=== PATIENT | female | born 1945 | race Caucasian/White ===

== ENCOUNTER → 2017-06-26 | Day surgery (SDC) | payer MEDICARE ==
--- NOTE | 2017-06-18 10:58 | TH ---
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 ATTENDING PHYSICIAN Omayra Lilly. HISTORY OF PRESENT ILLNESS The patient is a 71-year-old who was noted to have a density in the right breast on bilateral diagnostic mammogram January 15, 2017. Right breast ultrasound confirmed a 1.4 x 1.1 cm BI-RADS 4 hypoechoic nodule and she subsequently underwent ultrasound-guided core biopsy in January. This was for a mass at 10 o'clock, 10 cm from the nipple. Final pathology demonstrated focal atypical ductal hyperplasia. She was seen in March and re-excision of the area was recommended but she has been unable to proceed until this time. She has had bilateral benign open biopsies of the breast in the and . PAST MEDICAL HISTORY 1. Hypertension. 2. Non-insulin dependent type 2 diabetes. 3. Osteoarthritis. 4. Spinal stenosis. PAST SURGICAL HISTORY 1. Total abdominal hysterectomy and bilateral salpingo-oophorectomy in the . 2. Bilateral open breast biopsies as above. 3. Laparoscopic cholecystectomy in the . 4. Cystopexy in 2008. 5. Foot surgery in 2008. 6. Cataract surgery in April. MEDICATIONS Current medications include: 1. Aspirin 81 mg daily. 2. Alprazolam 0.25 mg q.i.d. p.r.n. anxiety. 3. Amlodipine 5 mg b.i.d. 4. Carvedilol 6.25 mg b.i.d. 5. Estradiol 1 mg daily. 6. Isosorbide extended release 60 mg daily. 7. Lovastatin 40 mg daily. 8. Metformin 500 mg daily. 9. Nicotrol inhaler p.r.n. 10.Sublingual nitroglycerin 0.4 mg p.r.n. 11.Ranitidine 300 mg daily. 12.Vitamin-D 50,000 units twice a week. 13.B12 shots. ALLERGIES 1. CYMBALTA. 2. SULFA. 3. LISINOPRIL. 4. LOSARTAN. FAMILY HISTORY Noncontributory. REPRODUCTIVE HISTORY G4, P4. Menarche age 12. First child age 16. Surgical menopause age 41. She took Premarin for many years but was switched to estradiol 2 years ago. SOCIAL HISTORY She has a long history of nicotine abuse and currently uses the Nicotrol inhaler once or twice daily. REVIEW OF SYSTEMS A 12-point review of systems was significant for cataracts and neck and joint pain and stiffness. She also has a long history of anxiety. PHYSICAL EXAMINATION VITAL SIGNS: She is 5.3, weighs 186 pounds with a BMI of 33. Blood pressure 137/76, temperature 97, heart rate 62, respirations 17. HEENT: Unremarkable. NECK: Supple with no adenopathy or thyromegaly. CHEST: Clear throughout. CARDIAC: Normal S1 and S2 with no murmurs, rubs or gallops. BREASTS: Exam reveals fibrocystic changes with a 1 cm superolateral quadrant mass in the right breast. The right breast mass was at 10 o'clock, 7 cm from the nipple and there was also a 9 o'clock scar in the right breast with volume loss and an 11 o'clock periareolar left breast scar. ABDOMEN: Exam reveals well-healed port scars and a Pfannenstiel scar with no hernias, masses or tenderness. The remainder of her exam was unremarkable. IMPRESSION/PLAN Ms. Yan has atypical ductal hyperplasia and will require needle-localized excision of the area. We have also recommended tapering and stopping the estradiol. Omayra Lilly MD [facility]/BT /10:29 AM /10:38 AM
[~2017-06-26] MED LIST: ALPR0.25 PO; BUPIVACAINE HCL PF 0.5% 10 ML VIAL ONE; CARV6.252 PO; CHOL50006 PO; ESTR1TAB12 PO; ISOS20TA38 PO; KETOROLAC TROMETHAMINE 30 MG/ML (IVP) VIAL ONE; LACTATED RINGER'S 1000 ML INJ 1,000 ML ONE; LOVA10TA PO; METF500 PO; MIDAZOLAM HCL 2 MG/2 ML VIAL ONE; ONDANSETRON HCL 4 MG/2 ML VIAL IV PUSH ONE; PROPOFOL 100 MG/10 ML INJ IV ONE; PROT40TA PO; RANI150 PO; ST JTAB PO; ZOFR4TAB3 SL; ceFAZolin 2 GM PREMIX 50 ML ONE
--- NOTE | 2017-06-26 12:30 | TN ---
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 PROCEDURE PERFORMED Right breast needle-localized lumpectomy. SURGEON Omayra Lilly MD ANESTHESIA General via LMA device. INDICATION The patient is a 72-year-old female who had a palpable right breast mass with an ultrasound-guided core biopsy which demonstrated atypical ductal hyperplasia. She now presents for needle-localized re-excision of the area. FINDINGS AT THE TIME OF SURGERY Specimen mammogram did indicate an intact wire and the biopsy clip was within the specimen. PROCEDURE PERFORMED After informed consent was obtained and site verification was performed, the patient was brought to the radiology suite where she underwent needle localization of her prior biopsy site. She was then brought to the major operating room where she underwent general anesthesia via LMA device. She was given a single dose of IV Ancef and sequential compression hose were placed. The right breast was prepped and draped in sterile fashion. A crescent incision was anesthetized near the wire entry point and the lesion was identified at 10 o'clock 7 cm from the nipple. Further 0.5% Marcaine plain was then used to infiltrate around the wire. Sharp dissection was performed until the wire entry point through the skin was identified and secured with a hemostat. The wire was cut off at the skin with pin cutters and a 2-0 Silk transfixion suture was placed at the wire entry point into the breast tissue. Both sharp and electrocautery dissection were then performed circumferentially around the wire beyond the tip and the specimen was oriented with two sutures laterally, one long suture anteriorly, and one short suture superiorly. Inspection of the specimen did demonstrate that the posterior margin appeared close and this was reexcised using electrocautery with a stitch on the new margin. This was sent as a permanent specimen and the lumpectomy specimen was sent to x-ray with the findings as noted. It was then sent for permanent pathologic evaluation. Hemostasis was easily obtained with electrocautery and the wound was closed using interrupted 3-0 Vicryl subcutaneous sutures and a 4-0 Monocryl subcuticular suture. Steri-Strips and sterile dressing were applied. The patient tolerated the procedure well with an estimated blood loss of 50 ccs and she was extubated in the operating room and brought to the recovery room in good condition. All sponge and needle counts were correct at the conclusion of the case. MD JASBIR Lovett/MIKE /12:10 PM /12:17 PM
== END | disposition home or self-care (01) ==
LOC: ESDC 08:34
PROVIDERS: ATTEND Surgery
DX: C50.911 Malignant neoplasm of unspecified site of right female breast (principal)
CPT/HCPCS: 00400; 19125; 88305; J0690; J1885; J2250; J2405; J3010; J7120; 88307; 88361

== ENCOUNTER 2017-08-31 19:55 | Emergency (ER) | payer MEDICARE ==
[~2017-08-31] VITALS: Ht 160 cm; Wt 83.2 kg
[~2017-08-31 19:55] MED LIST changes: -BUPIVACAINE HCL PF 0.5% 10 ML VIAL ONE; -KETOROLAC TROMETHAMINE 30 MG/ML (IVP) VIAL ONE; -LACTATED RINGER'S 1000 ML INJ 1,000 ML ONE; -MIDAZOLAM HCL 2 MG/2 ML VIAL ONE; -ONDANSETRON HCL 4 MG/2 ML VIAL IV PUSH ONE; -PROPOFOL 100 MG/10 ML INJ IV ONE; -ceFAZolin 2 GM PREMIX 50 ML ONE
[2017-08-31 19:57] VITALS: BP 195/84; PULSE 70; RESP 18; TEMP 98; O2SAT 98
[2017-08-31] MEDS ORDERED: ESTR1TAB PO (20:15)
[2017-08-31] MEDS ORDERED: ISOS20TA PO (20:15)
[2017-08-31] MEDS ORDERED: CARV6.252 PO (20:15)
[2017-08-31] MEDS ORDERED: NICO10SP EACH NARE (20:15)
[2017-08-31] MEDS ORDERED: VITA200013 PO (20:15)
[2017-08-31] MEDS ORDERED: NITR0.4S SL (20:15)
[2017-08-31] MEDS ORDERED: ALIG4CAP PO (20:15)
[2017-08-31] MEDS ORDERED: RANI300T PO (20:15)
[2017-08-31] MEDS ORDERED: METF500T PO (20:15)
[2017-08-31] MEDS ORDERED: AMLO5TAB2 PO (20:15)
[2017-08-31] MEDS ORDERED: ALPR.25 PO (20:15)
[2017-08-31] MEDS ORDERED: ASPI-516 CHEW (20:15)
[2017-08-31] MEDS ORDERED: CYAN1TAB24 (20:15)
[2017-08-31] MEDS ORDERED: LOVA40TA PO (20:15)
[2017-08-31] MEDS ORDERED: CLIN150C14 PO (20:26)
--- NOTE | 2017-08-31 20:26 | PD ---
HPI Chief Complaint: Pain: Acute or Chronic Time Seen by Provider: 20:07 Travel History International Travel<30 days: No Contact w/Intl Traveler<30days: No Traveled to known affect area: No History of Present Illness HPI 72-year-old female complains of pain swelling right breast. Patient has history of atypical ductal hyperplasia right breast cancer. Patient status post right breast lumpectomy with intraoperative radiation therapy and right axillary sentinel lymph node biopsy. The surgery was done on August 15, [address] Ordoñez. Patient was seen in the office 2 days ago and had stitches removal. Patient states that she has increasing pain and swelling of the right breast since then. Patient denies any fever chills. PFSH Past Medical History Arthritis: Yes Anxiety: Yes Cancer: No Cardiac Catheterization: Yes Cardiovascular Problems: Yes (ARRYTHMIAS, BLOCKED CORONARY ARTERY( IN OP.)) High Cholesterol: Yes Diabetes: Yes Patient Takes Glucophage: Yes (METFORMIN ) Diminished Hearing: No Diverticulitis: Yes GERD: Yes Glaucoma: No Hepatitis: No Hiatal Hernia: No Hypertension: Yes Medical other: Yes (ARTHRITIS/SPINAL STENOSIS) Respiratory: No Thyroid Disease: No Influenza Vaccination: No Menopausal: Yes Past Surgical History Abdominal Surgery: Yes (CHOLECYSTECTOMY) Cardiac Surgery: Yes (LEFT CAROTID ENDARTECTOMY (FOR PLAQUE IN VESSELS OF LEFT EYE)) Cholecystectomy: Yes Endocrine Surgery: No Genitourinary Surgery: No Gynecologic Surgery: Yes (HYSTERECTOMY) Hysterectomy: Yes Pacemaker: No Thoracic Surgery: No Other Surgery: Yes (RIGHT BREAST) Social History Alcohol Use: No Tobacco Use: No Substance Use: No Allergies-Medications (Allergen,Severity, Reaction): Coded Allergies: Sulfa (Sulfonamide Antibiotics) (Unverified Allergy, Severe, SWELLING, HIVES, COULDN'T BREATHE, 08/31/17) duloxetine (Unverified Allergy, Severe, Rash, 08/31/17) codeine (Unverified Adverse Reaction, Severe, NAUSEA/VOMITING, 08/31/17) Uncoded Allergies: EXCEDRIN (Allergy, Severe, 12/17/14) PT STATES SHE IS NOT SURE SHE IS ALLERGOC TO THIS MED Reported Meds & Prescriptions Reported Meds & Active Scripts Active Reported B12 (Cyanocobalamin) 1,000 Mcg Tab 1 Nitrostat SL (Nitroglycerin) 0.4 Mg Subl 0.4 Mg SL DIRECTED PRN 1 tablet under the tongue as needed for chest pain. Repeat every 5 minutes for a total of 3 DOSES or call 911 if NO relief. Nicotrol Nasal [place] (Nicotine) 10 Mg/Ml Naspr 1 [place] EACH NARE DIRECTED Xanax (Alprazolam) 0.25 Mg Tab 0.25 Mg PO Q4H PRN Align (Lactobacillus Rhamnosus (GG)) 4 Mg (1 Billion Cell) Cap 4 Mg PO DAILY Aspirin 81 Mg Chew 81 Mg CHEW DAILY Ranitidine (Ranitidine HCl) 300 Mg Tab 300 Mg PO DAILY Vitamin D (Cholecalciferol) 2,000 Unit Cap 50,000 Mg PO SATURDAY + SATURDAY Estradiol 1 Mg Tab 1 Mg PO DAILY Amlodipine (Amlodipine Besylate) 5 Mg Tab 5 Mg PO BID Carvedilol 6.25 Mg Tab 6.25 Mg PO BID Isosorbide Mononitrate 20 Mg Tab 60 Mg PO BID Take 2 doses 7 hours apart. Lovastatin 40 Mg Tab 40 Mg PO HS Metformin (Metformin HCl) 500 Mg Tab 500 Mg PO HS With a meal Review of Systems General / Constitutional: No: Fever Eyes: No: Visual changes HENT: No: Headaches Cardiovascular: No: Chest Pain or Discomfort Respiratory: No: Shortness of Breath Gastrointestinal: No: Abdominal Pain Genitourinary: No: Dysuria Musculoskeletal: No: Pain Skin: No Rash Neurologic: No: Weakness Psychiatric: No: Depression Endocrine: No: Polydipsia Hematologic/Lymphatic: No: Easy Bruising Physical Exam Narrative GENERAL: Well-nourished, well-developed patient. SKIN: Focused skin assessment warm/dry. HEAD: Normocephalic. EYES: No scleral icterus. No injection or drainage. NECK: Supple, trachea midline. No JVD or lymphadenopathy. CARDIOVASCULAR: Regular rate and rhythm without murmurs, gallops, or rubs. RESPIRATORY: Breath sounds equal bilaterally. No accessory muscle use. GASTROINTESTINAL: Abdomen soft, non-tender, nondistended. MUSCULOSKELETAL: No cyanosis, or edema. BACK: Nontender without obvious deformity. No CVA tenderness. Patient has an area of redness swelling tenderness of the right breast surrounding the incisional site on the right upper outer quadrant of the right breast. No induration noted. No discharge. Data Data Last Documented VS Vital Signs Date Time Temp Pulse Resp B/P (MAP) Pulse Ox O2 Delivery O2 Flow Rate FiO2 12/30/17 19:57 98.0 70 18 195/84 (121) 98 Room Air MDM Medical Decision Making Medical Screen Exam Complete: Yes Emergency Medical Condition: Yes Differential Diagnosis Differential diagnosis including cellulitis, abscess. Narrative Course 72-year-old female with increasing redness swelling tenderness right breast status post right breast lumpectomy recently. I spoke with Dr. Ordoñez, her surgeon. Advised antibiotic. Patient is given clindamycin 600 mg IM now. Prescription for clindamycin and follow up with her surgeon as directed. Diagnosis Primary Impression: Mastitis Patient Instructions: General Instructions Additional Instructions: Take clindamycin as directed. Follow-up with surgeon as directed. Return if increasing redness swelling, fever. Med/Other Pt SpecificInfo: Prescription(s) given Scripts Clindamycin (Clindamycin) 150 Mg Cap 300 MG PO QID for Infection, #80 CAP 0 Refills Prov: Wilner Armstrong MD 08/31/17 Disposition: 01 DISCHARGE HOME Condition: Stable Wilner Armstrong MD Aug 31, 2017 20:26
[2017-08-31] MEDS ORDERED: CLINDAMYCIN PHOS 600 MG/4 ML VIAL IM ONE (20:30)
== END 2017-08-31 20:54 | disposition home or self-care (01) ==
LOC: NEPC 19:55
DX: N61.0 Mastitis without abscess (principal); I10 Essential (primary) hypertension; E11.9 Type 2 diabetes mellitus without complications; E78.00 Pure hypercholesterolemia, unspecified; K21.9 Gastro-esophageal reflux disease without esophagitis; Z79.84 Long term (current) use of oral hypoglycemic drugs; Z85.3 Personal history of malignant neoplasm of breast
CPT/HCPCS: 96372

== ENCOUNTER 2017-09-02 15:31 | Emergency (ER) | payer MEDICARE ==
[~2017-09-02] VITALS: Ht 160 cm; Wt 85.0 kg
[~2017-09-02 15:31] MED LIST changes: +ALIG4CAP PO; +ALPR.25 PO; -ALPR0.25 PO; +AMLO5TAB2 PO; +ASPI-516 CHEW; -CHOL50006 PO; +CLIN150C14 PO; +CYAN1TAB24; +ESTR1TAB PO; -ESTR1TAB12 PO; +ISOS20TA PO; -ISOS20TA38 PO; -LOVA10TA PO; +LOVA40TA PO; -METF500 PO; +METF500T PO; +NICO10SP EACH NARE; +NITR0.4S SL; -PROT40TA PO; -RANI150 PO; +RANI300T PO; -ST JTAB PO; +VITA200013 PO; -ZOFR4TAB3 SL
[2017-09-02 15:32] VITALS: BP 172/74; PULSE 67; RESP 20; TEMP 98.4; O2SAT 95
[2017-09-02 16:18] VITALS: BP 157/66; PULSE 61; RESP 18; TEMP 97.8; O2SAT 97
--- NOTE | 2017-09-02 17:19 | PD ---
HPI Chief Complaint: Pain: Acute or Chronic Time Seen by Provider: 15:58 Travel History International Travel<30 days: No Contact w/Intl Traveler<30days: No Traveled to known affect area: No History of Present Illness HPI 72-year-old female patient presents emergency department for evaluation of right breast erythema and tenderness. Patient had a right sided lumpectomy with Dr. Ordoñez on the 15 of August. She was subsequently evaluated at our facility on 31 August for mastitis. Patient was given 600 IM injection of clindamycin and discharged home with prescription for clindamycin patient is still taking her antibiotics. Patient denies any fevers, chills, malaise. Patient describes the pain as achy and constant. It is tender to palpation. 2 right lateral incision sites look well approximated with no purulent drainage. Dr Ordoñez called regarding this patient and she is states she will come in and drain the sarcoma. 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)) Cholecystectomy: Yes Endocrine Surgery: No Genitourinary Surgery: No Gynecologic Surgery: Yes (HYSTERECTOMY) Hysterectomy: Yes Pacemaker: No Thoracic Surgery: No Other Surgery: Yes (RIGHT BREAST) Social History Alcohol Use: No Tobacco Use: No Substance Use: No Allergies-Medications (Allergen,Severity, Reaction): Coded Allergies: Sulfa (Sulfonamide Antibiotics) (Unverified Allergy, Severe, SWELLING, HIVES, COULDN'T BREATHE, 08/31/17) duloxetine (Unverified Allergy, Severe, Rash, 08/31/17) codeine (Unverified Adverse Reaction, Severe, NAUSEA/VOMITING, 08/31/17) Uncoded Allergies: EXCEDRIN (Allergy, Severe, 12/17/14) PT STATES SHE IS NOT SURE SHE IS ALLERGOC TO THIS MED Reported Meds & Prescriptions Reported Meds & Active Scripts Active Clindamycin (Clindamycin HCl) 150 Mg Cap 300 Mg PO QID Reported B12 (Cyanocobalamin) 1,000 Mcg Tab 1 Xanax (Alprazolam) 0.25 Mg Tab 0.25 Mg PO Q4H PRN Align (Lactobacillus Rhamnosus (GG)) 4 Mg (1 Billion Cell) Cap 4 Mg PO DAILY Aspirin 81 Mg Chew 81 Mg CHEW DAILY Vitamin D (Cholecalciferol) 2,000 Unit Cap 50,000 Mg PO SATURDAY + SATURDAY Amlodipine (Amlodipine Besylate) 5 Mg Tab 5 Mg PO BID Carvedilol 6.25 Mg Tab 6.25 Mg PO BID Isosorbide Mononitrate 20 Mg Tab 60 Mg PO BID Take 2 doses 7 hours apart. Lovastatin 40 Mg Tab 40 Mg PO HS Metformin (Metformin HCl) 500 Mg Tab 500 Mg PO HS With a meal Review of Systems Except as stated in HPI: all other systems reviewed are Neg Physical Exam Narrative GENERAL: Well-nourished, well-developed 72-year-old female in no acute distress. SKIN: Right breast is moderately erythematous with 2 well approximated incisions with no purulent drainage noted on the right lateral aspect of the breast: 2 cm incision proximal to the right axilla and 2.5cm incision on the right lateral aspect of the breast. HEAD: Atraumatic. Normocephalic. EYES: Pupils equal and round. No scleral icterus. No injection or drainage. ENT: No nasal bleeding or discharge. Mucous membranes pink and moist. NECK: Trachea midline. No JVD. CARDIOVASCULAR: Regular rate and rhythm. No murmur appreciated. RESPIRATORY: No accessory muscle use. Clear to auscultation. Breath sounds equal bilaterally. GASTROINTESTINAL: Abdomen soft, non-tender, nondistended. Hepatic and splenic margins not palpable. MUSCULOSKELETAL: No obvious deformities. No clubbing. No cyanosis. No edema. NEUROLOGICAL: Awake and alert. No obvious cranial nerve deficits. Motor grossly within normal limits. Normal speech. PSYCHIATRIC: Appropriate mood and affect; insight and judgment normal. Data Data Last Documented VS Vital Signs Date Time Temp Pulse Resp B/P (MAP) Pulse Ox O2 Delivery O2 Flow Rate FiO2 09/02/17 18:06 60 16 144/69 (94) 98 09/02/17 16:18 97.8 Room Air Orders Orders Ed Discharge Order (09/02/17 17:57) MDM Medical Decision Making Medical Screen Exam Complete: Yes Emergency Medical Condition: Yes Differential Diagnosis Differential diagnosis include but not limited to mastitis, infected sarcoma, abscess Narrative Course Dr Ordoñez came in and drained the patient's right breast. She aspirated approximately 30 mLs of resting serosanguineous fluid. Dr Ordoñez stated there was no evidence of any infection or purulence in the fluid. She did not send it for a culture due to its appearance and the patient's afebrile status. Patient reports tremendous relief in pain after aspiration. Patient was discharged home with instructions to continue clindamycin antibiotic and follow up with Dr. Ordoñez her office next week. Diagnosis Primary Impression: Mastitis Referrals: Omayra Ordoñez MD Patient Instructions: General Instructions, Mastitis (DC) Additional Instructions: Please return to emergency department if your symptoms return or worsen. Follow-up with Dr. Mcginnis next week. Continue to take antibiotics as prescribed. Disposition: 01 DISCHARGE HOME Condition: Stable Britt Munoz Sep 02, 2017 17:19
[2017-09-02 18:06] VITALS: BP 144/69
== END 2017-09-02 18:20 | disposition home or self-care (01) ==
LOC: NEPC 15:31
DX: N61.0 Mastitis without abscess (principal); E11.9 Type 2 diabetes mellitus without complications; E78.00 Pure hypercholesterolemia, unspecified; I10 Essential (primary) hypertension; M48.00 Spinal stenosis, site unspecified; I49.9 Cardiac arrhythmia, unspecified; K21.9 Gastro-esophageal reflux disease without esophagitis; F41.9 Anxiety disorder, unspecified; M19.90 Unspecified osteoarthritis, unspecified site
CPT/HCPCS: 99282

== ENCOUNTER 2018-01-23 13:33 | Emergency (ER) | payer MEDICARE ==
[~2018-01-23] VITALS: Ht 160 cm; Wt 85.0 kg
[~2018-01-23 13:33] MED LIST changes: -ESTR1TAB PO; -NICO10SP EACH NARE; -NITR0.4S SL; -RANI300T PO
[2018-01-23 14:00] VITALS: BP 173/72; PULSE 54; RESP 16; TEMP 97.6; O2SAT 100
[2018-01-23] MEDS ORDERED: TETANUS/DIPHTHERIA TOXOID ADULT 0.5 ML VIAL IM ONE (14:00)
[2018-01-23] MEDS ORDERED: oxyCODONE/ACETAMINOPHEN 5 MG/325 MG TAB PO ONE (14:00)
[2018-01-23] MEDS ORDERED: BUPIVACAINE HCL PF 0.5% 30 ML VIAL INFIL ONE (14:15)
--- NOTE | 2018-01-23 14:30 | PD ---
HPI Chief Complaint: Fall Time Seen by Provider: 13:59 Travel History International Travel<30 days: No Contact w/Intl Traveler<30days: No Traveled to known affect area: No History of Present Illness HPI Patient is a 72-year-old female presents emergency department for evaluation obvious skin tear to the right lower extremity and left elbow after a fall. Patient states she has chronic neuropathy and she was climbing up the stairs to her home when she misstepped and did not step high enough for the next step, she fell forward onto the flight of stairs. Denies any head injury neck injury chest injury or back injury or abdominal injury. States symptoms started just prior to arrival, she has not been ambulatory since the event. She is placed in a splint, first aid applied on scene she was transported in position of comfort. She did receive 6 mg of morphine prior to arrival in the emergency department. States symptoms are moderate, right lower extremity and left elbow , context as above, duration as above PFSH Past Medical History Arthritis: Yes Anxiety: Yes Cancer: No Cardiac Catheterization: Yes Cardiovascular Problems: Yes High Cholesterol: Yes Diabetes: Yes Patient Takes Glucophage: Yes Diminished Hearing: No Diverticulitis: Yes GERD: Yes Glaucoma: No Hepatitis: No Hiatal Hernia: No Hypertension: Yes Medical other: Yes (ARTHRITIS/SPINAL STENOSIS) Respiratory: No Thyroid Disease: No Tetanus Vaccination: Unknown Influenza Vaccination: No Menopausal: Yes Past Surgical History Abdominal Surgery: Yes (CHOLECYSTECTOMY) Cardiac Surgery: Yes (LEFT CAROTID ENDARTECTOMY (FOR PLAQUE IN VESSELS OF LEFT EYE)) Cholecystectomy: Yes Endocrine Surgery: No Genitourinary Surgery: No Gynecologic Surgery: Yes (HYSTERECTOMY) Hysterectomy: Yes Pacemaker: No Thoracic Surgery: No Other Surgery: Yes (RIGHT BREAST) Social History Alcohol Use: No Tobacco Use: No Substance Use: No Allergies-Medications (Allergen,Severity, Reaction): Coded Allergies: Sulfa (Sulfonamide Antibiotics) (Unverified Allergy, Severe, SWELLING, HIVES, COULDN'T BREATHE, 01/23/18) duloxetine (Unverified Allergy, Severe, Rash, 01/23/18) codeine (Unverified Adverse Reaction, Severe, NAUSEA/VOMITING, 01/23/18) Uncoded Allergies: EXCEDRIN (Allergy, Severe, 12/17/14) PT STATES SHE IS NOT SURE SHE IS ALLERGOC TO THIS MED Reported Meds & Prescriptions Reported Meds & Active Scripts Active Ultram (Tramadol HCl) 50 Mg Tab 50 Mg PO Q8H PRN Keflex (Cephalexin) 500 Mg Capsule 500 Mg PO Q6H 7 Days Reported B12 (Cyanocobalamin) 1,000 Mcg Tab 1 Xanax (Alprazolam) 0.25 Mg Tab 0.25 Mg PO Q4H PRN Aspirin 81 Mg Chew 81 Mg CHEW DAILY Vitamin D (Cholecalciferol) 2,000 Unit Cap 50,000 Mg PO SATURDAY + SATURDAY Amlodipine (Amlodipine Besylate) 5 Mg Tab 5 Mg PO BID Carvedilol 6.25 Mg Tab 6.25 Mg PO BID Isosorbide Mononitrate 20 Mg Tab 60 Mg PO BID Take 2 doses 7 hours apart. Lovastatin 40 Mg Tab 40 Mg PO HS Metformin (Metformin HCl) 500 Mg Tab 500 Mg PO HS With a meal Review of Systems Except as stated in HPI: all other systems reviewed are Neg Physical Exam Narrative GENERAL: Well-nourished, obese well-developed patient. In no obvious discomfort SKIN: Focused skin assessment warm/dry. There is a moderate skin tear to the right lower extremity over the tibia. The total length is probably close to 10 cm and a significant portion was drawn back distally. Does not appear that the wound has crossed the fascial layer, there is some fatty tissue exposed but no muscle tissue exposed. There is some hematoma in the wound which was easily expressed and removed and no bleeding underneath. No foreign body was observed. There is also a small abrasion over the dorsal aspect of the left elbow, no bleeding, this is actually very minimal wound. HEAD: Normocephalic. Atraumatic, no schneider signs no raccoons eyes EYES: No scleral icterus. No injection or drainage. NECK: Supple, trachea midline. No JVD or lymphadenopathy. CARDIOVASCULAR: Regular rate and rhythm without murmurs, gallops, or rubs. RESPIRATORY: Breath sounds equal bilaterally. No accessory muscle use. GASTROINTESTINAL: Abdomen soft, non-tender, nondistended. MUSCULOSKELETAL: No cyanosis, or edema. No midline CT or L-spine tenderness, no gross deformity, pulse motor and sensory intact distally in all 4 extremities compartments are soft. Skin avulsions are noted as above BACK: Nontender without obvious deformity. No CVA tenderness. Data Data Last Documented VS Vital Signs Date Time Temp Pulse Resp B/P (MAP) Pulse Ox O2 Delivery O2 Flow Rate FiO2 01/23/18 16:21 01/23/18 16:21 55 16 97 Room Air 01/23/18 14:00 97.6 Orders Orders Tibia/Fibula (Ap/Lat) (01/23/18 ) Oxycodone-Acetamin 5-325 Mg (Percocet (01/23/18 14:00) Tetanus/Diphtheria Tox Adult (Tetanus/Di (01/23/18 14:00) Bupivacaine Pf 0.5% Inj (Marcaine Pf 0.5 (01/23/18 14:15) Ondansetron Odt (Zofran Odt) (01/23/18 15:15) MDM Medical Decision Making Medical Screen Exam Complete: Yes Emergency Medical Condition: Yes Differential Diagnosis Skin avulsion, fracture, foreign body, head injury is excluded clinically and C- spine excluded by Nexus criteria peer Narrative Course Patient room to the emergency department after a ground-level fall, she has a significant avulsion injury to the right lower extremity, this appears to involve skin and soft tissue only, no muscle body involved however. This wound was cleaned and anesthetized and approximated to the best of our ability by both and Jayson Crandall with Steri-Strips only. Patient will be placed on prophylactic antibiotics, pain medicine, tetanus status was updated. At this time she is stable for discharge. She returned to the emergency department 2 days for wound check. Until then she will leave the wound dressing in place. She was also informed to follow-up with a cam specialist and may need skin grafting in the future Diagnosis Primary Impression: Skin tear Med/Other Pt SpecificInfo: Prescription(s) given Scripts Tramadol (Ultram) 50 Mg Tab 50 MG PO Q8H Y for PAIN, #12 TAB 0 Refills Prov: Mehrdad Bhardwaj MD 01/23/18 Cephalexin (Keflex) 500 Mg Capsule 500 MG PO Q6H for Infection for 7 Days, #28 CAP 0 Refills Prov: Mehrdad Bhardwaj MD 01/23/18 Disposition: 01 DISCHARGE HOME Condition: Stable Mehrdad Bhardwaj MD January 23, 2018 14:30
--- NOTE | 2018-01-23 14:42 | RADRPT ---
EXAM DATE: 01/23/2018 2:30 PM EDT AGE/SEX: 72 years / Female INDICATIONS: Mid anterior right lower leg abrasion and pain. Patient fell today. CLINICAL DATA: This is the patient's initial encounter. Patient reports that signs and symptoms have been present for 1 day and indicates a pain score of 10/10. MEDICAL/SURGICAL HISTORY: None. None. COMPARISON: No prior [facility] exams available for comparison. FINDINGS: Bony structures are intact and in normal alignment. Osseous density is normal. Soft tissues are unre markable. No radiopaque foreign bodies seen. CONCLUSION: No acute fracture identified. Electronically signed by: Harley Chinchilla MD 01/23/2018 2:41 PM EDT
[2018-01-23] MEDS ORDERED: ONDANSETRON ODT 4 MG TAB PO ONE (15:15)
[2018-01-23] MEDS ORDERED: CEPH-460 PO (15:41)
[2018-01-23] MEDS ORDERED: TRAM50 PO (15:41)
[2018-01-23 16:21] VITALS: BP 174/76; PULSE 55; RESP 16; O2SAT 97
== END 2018-01-24 03:00 | disposition home or self-care (01) ==
LOC: NEPD 13:33
DX: S81.811A Laceration without foreign body, right lower leg, initial encounter (principal); S50.312A Abrasion of left elbow, initial encounter; E66.9 Obesity, unspecified; E11.40 Type 2 diabetes mellitus with diabetic neuropathy, unspecified; F41.9 Anxiety disorder, unspecified; M19.90 Unspecified osteoarthritis, unspecified site; I10 Essential (primary) hypertension; W19.XXXA Unspecified fall, initial encounter; Z23 Encounter for immunization
CPT/HCPCS: 73590; 90471; 90714

== ENCOUNTER 2018-06-09 05:56 | Observation (INO) ==
[2018-06-09] MEDS ORDERED: Morphine Inj 4 MG/ML Vial IV.PUSH ONE (07:16)
[2018-06-09 07:45] LABS: Baso % (Auto) 0.6 % (0.0-2.0); Eos % (Auto) 0.2 % (0.0-4.0); Hematocrit 41.1 % (35.0-46.0); Hemoglobin 14.1 gm/dL (11.6-15.3); Lymph # (Auto) 0.6 th/mm3 (1.0-4.8); Lymph % (Auto) 14.2 % (9.0-44.0); Mean Corpuscular HGB Conc 34.2 % (32.0-36.0); Mean Corpuscular Hemoglobin 31.7 pg (27.0-34.0); Mean Corpuscular Volume 92.6 fL (80.0-100.0); Mean Platelet Volume 8.1 fL (7.0-11.0); Mono # (Auto) 0.4 th/mm3 (0.0-0.9); Mono % (Auto) 9.5 % (0.0-8.0); Neut # (Auto) 3.3 th/mm3 (1.8-7.7); Neut % (Auto) 75.5 % (16.0-70.0); Platelet Count 138 th/mm3 (150-450); Red Blood Count 4.43 mil/mm3 (4.00-5.30); Red Cell Distribution Width 14.4 % (11.6-17.2); White Blood Count 4.3 th/mm3 (4.0-11.0)
[2018-06-09 07:52] LABS: Bilirubin,Urine Negative (Negative); Clarity,Urine Clear (Clear); Color,Urine Yellow (Yellw/Straw); Glucose,Urine (UA) Negative (Negative); Leukocyte Esterase,Urine Negative (Negative); Mucus,Urine Few /lpf (Occasional); Nitrite,Urine Negative (Negative); Squamous Epithelial Cell,Urine 1 /hpf (0-5)
[2018-06-09 08:06] LABS: Alanine Aminotransferase 18 U/L (10-53); Albumin 3.4 g/dL (3.4-5.0); Anion Gap 9 meq/L (5-15); Aspartate Aminotransferase 18 U/L (15-37); Blood Urea Nitrogen 13 mg/dL (7-18); Calcium 8.9 mg/dL (8.5-10.1); Carbon Dioxide 25.3 meq/L (21.0-32.0); Chloride 106 meq/L (98-107); Glomerular Filtration Rate 87 mL/min (>89); Glucose,Random 118 mg/dL (74-106); Sodium 140 meq/L (136-145)
--- NOTE | 2018-06-09 08:06 | ED ---
HPI General Chief complaint: Weakness Stated complaint: body aches Time Seen by Provider: 06/09/18 07:10 History of Present Illness HPI Narrative: This is a 72-year-old female with a history of lumbar spinal stenosis, diabetes, hypertension, who presents today with complaints of head and neck pain. Patient also reports that she has had weakness of her upper and lower extremities since this morning. Patient states that she woke up with a headache and neck pain. She states that she felt pain down her arms. She also reports she felt as though her strength was not as strong as it normally is. She denies any bowel or bladder incontinence. Patient denies any previous history of cervical spine injury. She did have a fall several weeks ago which resulted in a large skin tear to her right lower extremity. She denies any recent falls. There is no reported fevers, chills. There is no reported other injuries at this time. Related Data Home Medications Medication Instructions Recorded Confirmed Bifidobacterium infantis [Align] 06/09/18 amlodipine 5 mg PO BID 06/09/18 06/09/18 aspirin 81 mg PO DAILY 06/09/18 06/09/18 carvedilol 6.25 mg PO BID 06/09/18 06/09/18 isosorbide mononitrate 60 mg PO BID 06/09/18 06/09/18 lovastatin 40 mg PO HS 06/09/18 06/09/18 metformin 500 mg PO HS 06/09/18 06/09/18 Allergies Allergy/AdvReac Type Severity Reaction Status Date / Time duloxetine Allergy Severe Rash Verified 06/10/18 10:25 Sulfa (Sulfonamide Allergy Severe SWELLING,HIVES, Verified 06/10/18 10:25 Antibiotics) COULDN'T BREATHE codeine AdvReac Severe NAUSEA/VOMI Verified 06/10/18 10:25 TING EXCEDRIN Allergy Severe unknown Uncoded 06/09/18 06:02 Review of Systems ROS: all other systems reviewed are negative Constitutional Reports system reviewed and no additional complaints, except as docu Eyes Reports system reviewed and no additional complaints, except as docu ENT Reports system reviewed and no additional complaints, except as docu Cardiovascular Reports chest pain, Denies palpitations and Denies dyspnea Respiratory Denies chest congestion, Denies cough and Denies dyspnea Gastrointestinal Denies abdominal pain, Denies nausea and Denies vomiting Genitourinary Denies dysuria, Denies flank pain and Denies urinary incontinence Musculoskeletal Reports back pain, Reports muscle weakness (Subjective to bilateral upper and lower extremities) and Reports tingling (Bilateral upper extremities) Neurologic Reports burning sensations (Bilateral upper extremities earlier, none at the time of my examination.), Denies focal weakness, Denies sensory deficit and Reports weakness (Bilateral upper and lower extremity.) [facility] Medical History Medical History Arthritis (Acute) Breast cancer (Acute) Bursitis (Acute) Carpal tunnel syndrome (Acute) Diabetes (Acute) H/O: hysterectomy (Acute) Spinal stenosis (Acute) Social History Social History Substance History: No History of Abuse Second Hand Smoke Exposure: No Smoking Status: Current some day smoker Tobacco Type: E-Cigarettes How Often Do You Have a Drink Containing Alcohol: Never Recent Travel in [facility] within the Last 8 Weeks: No Recent Out of Country Travel within the Last 8 Weeks: No Immunization History Tetanus Immunization: <5 Years Tetanus Immunization Year if Known: 2017 Exam Narrative Exam Narrative: GENERAL: Well-developed well-nourished female in no acute respiratory distress. SKIN: Focused skin assessment warm/dry. HEAD: Atraumatic. Normocephalic. EYES: Extraocular muscles were intact.. No scleral icterus. No injection or drainage. ENT: No nasal bleeding or discharge. Mucous membranes pink and moist. NECK: Trachea midline. Subjective tenderness in her lower cervical spine. Appears to be paraspinous. No nuchal rigidity. CARDIOVASCULAR: Regular rate and rhythm. No murmur appreciated. RESPIRATORY: No accessory muscle use. Clear to auscultation. Breath sounds equal bilaterally. GASTROINTESTINAL: Abdomen soft, non-tender, nondistended. Hepatic and splenic margins not palpable. MUSCULOSKELETAL: No obvious deformities. No clubbing. No cyanosis. No edema. NEUROLOGICAL: Awake and alert. No obvious cranial nerve deficits. Motor grossly equal bilaterally. Patient appears to be weak with 4 out of 5 strength however some of this does appear to be effort related. She was observed ambulating to the bathroom. Normal speech. Course Initial Documented Vital Signs Temperature 99.6 F 06/09/18 06:02 Pulse Rate 71 06/09/18 06:02 Respiratory Rate 16 06/09/18 06:02 Blood Pressure 141/63 H 06/09/18 06:02 Pulse Oximetry 96 06/09/18 06:02 Last Documented Vital Signs Temperature 97.3 F L 06/10/18 16:20 Pulse Rate 63 06/10/18 16:20 Respiratory Rate 20 06/10/18 16:20 Blood Pressure 153/67 H 06/10/18 16:20 Pulse Oximetry 97 06/10/18 16:20 Medical Decision Making MDM Narrative Medical decision making narrative: 73-year-old female with history of spinal stenosis, presents today with complaints of severe back pain. Patient also reported chest pain. She has a history of diabetes mellitus and coronary artery disease. Patient's first set of cardiac enzymes and EKG are within normal limits. MRI of the lumbar and thoracic spine showed no evidence of cauda equina syndrome. There was significant spinal stenosis and there was evidence of narrowing of the thoracic spinal canal without evidence of spinal cord injury. Given the symptoms and the MRI results as well as a chest pain. Patient will be admitted for rule out protocol. [facility] She will be ruled out and have her pain controlled. Medical Screen Exam Complete: Yes Emergency Medical Condition: Yes Differential Diagnosis Differential Diagnosis: Cervical spinal stenosis versus metabolic derangement versus peripheral nerve disease Lab Data Result diagrams: 06/10/18 06:45 06/10/18 06:45 Lab Results 06/09/18 06/09/18 06/09/18 Range/Units 07:30 07:30 07:30 WBC 4.3 (4.0-11.0) th/mm3 RBC 4.43 (4.00-5.30) mil/mm3 Hgb 14.1 (11.6-15.3) gm/dL Hct 41.1 (35.0-46.0) % MCV 92.6 (80.0-100.0) fL MCH 31.7 (27.0-34.0) pg MCHC 34.2 (32.0-36.0) % RDW 14.4 (11.6-17.2) % Plt Count 138 L (150-450) th/mm3 MPV 8.1 (7.0-11.0) fL Neut % (Auto) 75.5 H (16.0-70.0) % Lymph % (Auto) 14.2 (9.0-44.0) % [place] % (Auto) 9.5 H (0.0-8.0) % Eos % (Auto) 0.2 (0.0-4.0) % Baso % (Auto) 0.6 (0.0-2.0) % Neut # (Auto) 3.3 (1.8-7.7) th/mm3 Lymph # (Auto) 0.6 L (1.0-4.8) th/mm3 [place] # (Auto) 0.4 (0.0-0.9) th/mm3 Eos # (Auto) 0.0 (0.0-0.4) th/mm3 Baso # (Auto) 0.0 (0.0-0.2) th/mm3 WBC Differential . Differential Comment Auto diff final PT (9.8-11.6) sec INR Ratio APTT (24.3-30.1) sec Sodium 140 (136-145) meq/L Potassium 4.0 (3.5-5.1) meq/L Chloride 106 (98-107) meq/L Carbon Dioxide 25.3 (21.0-32.0) meq/L Anion Gap 9 (5-15) meq/L BUN 13 (7-18) mg/dL Creatinine 0.67 (0.50-1.00) mg/dL Estimated GFR 87 L (>89) mL/min POC Glucose (68-110) mg/dl Random Glucose 118 H (74-106) mg/dL Calcium 8.9 (8.5-10.1) mg/dL Magnesium (1.5-2.5) mg/dL Total Bilirubin 0.5 (0.2-1.0) mg/dL AST 18 (15-37) U/L ALT 18 (10-53) U/L Alkaline Phosphatase 100 (45-117) U/L Total Creatine Kinase (26-192) U/L Troponin I Less than 0.02 L (0.02-0.05) ng/mL Total Protein 6.9 (6.4-8.2) g/dL Albumin 3.4 (3.4-5.0) g/dL Triglycerides (42-150) mg/dL Cholesterol (120-200) mg/dL LDL Cholesterol, Calc (0-99) mg/dL HDL Cholesterol (40.0-60.0) mg/dL Cholesterol/HDL Ratio Ratio Urine Color Yellow (Yellw/Straw) Urine Clarity Clear (Clear) Urine pH 5.0 (5.0-8.5) Ur Specific [place] 1.010 (1.002-1.035) Urine Protein Negative (Neg-Trace) mg/dL Urine Glucose (UA) Negative (Negative) mg/dL Urine Ketones Negative (Negative) mg/dL Urine Occult Blood Small H (Negative) Urine Nitrate Negative (Negative) Urine Bilirubin Negative (Negative) Urine Urobilinogen Less than 2 (Less than 2) mg/dL Ur Leukocyte Esterase Negative (Negative) Urine RBC 2 (0-3) /hpf Urine WBC Less than 1 (0-5) /hpf Ur Squamous Epith Cells 1 (0-5) /hpf Urine Mucus Few H (Occasional) /lpf Micro UA Comment Culture not ind Ur Microscopic Review Not Reportable Urine Culture Comments Culture not ind 06/09/18 06/09/18 06/09/18 Range/Units 07:30 11:15 11:15 WBC (4.0-11.0) th/mm3 RBC (4.00-5.30) mil/mm3 Hgb (11.6-15.3) gm/dL Hct (35.0-46.0) % MCV (80.0-100.0) fL MCH (27.0-34.0) pg MCHC (32.0-36.0) % RDW (11.6-17.2) % Plt Count (150-450) th/mm3 MPV (7.0-11.0) fL Neut % (Auto) (16.0-70.0) % Lymph % (Auto) (9.0-44.0) % [place] % (Auto) (0.0-8.0) % Eos % (Auto) (0.0-4.0) % Baso % (Auto) (0.0-2.0) % Neut # (Auto) (1.8-7.7) th/mm3 Lymph # (Auto) (1.0-4.8) th/mm3 [place] # (Auto) (0.0-0.9) th/mm3 Eos # (Auto) (0.0-0.4) th/mm3 Baso # (Auto) (0.0-0.2) th/mm3 WBC Differential Differential Comment PT 10.5 (9.8-11.6) sec INR 1.0 Ratio APTT 23.8 L (24.3-30.1) sec Sodium (136-145) meq/L Potassium (3.5-5.1) meq/L Chloride (98-107) meq/L Carbon Dioxide (21.0-32.0) meq/L Anion Gap (5-15) meq/L BUN (7-18) mg/dL Creatinine (0.50-1.00) mg/dL Estimated GFR (>89) mL/min POC Glucose (68-110) mg/dl Random Glucose (74-106) mg/dL Calcium (8.5-10.1) mg/dL Magnesium 2.0 (1.5-2.5) mg/dL Total Bilirubin (0.2-1.0) mg/dL AST (15-37) U/L ALT (10-53) U/L Alkaline Phosphatase (45-117) U/L Total Creatine Kinase 33 26 (26-192) U/L Troponin I (0.02-0.05) ng/mL Total Protein (6.4-8.2) g/dL Albumin (3.4-5.0) g/dL Triglycerides (42-150) mg/dL Cholesterol (120-200) mg/dL LDL Cholesterol, Calc (0-99) mg/dL HDL Cholesterol (40.0-60.0) mg/dL Cholesterol/HDL Ratio Ratio Urine Color (Yellw/Straw) Urine Clarity (Clear) Urine pH (5.0-8.5) Ur Specific [place] (1.002-1.035) Urine Protein (Neg-Trace) mg/dL Urine Glucose (UA) (Negative) mg/dL Urine Ketones (Negative) mg/dL Urine Occult Blood (Negative) Urine Nitrate (Negative) Urine Bilirubin (Negative) Urine Urobilinogen (Less than 2) mg/dL Ur Leukocyte Esterase (Negative) Urine RBC (0-3) /hpf Urine WBC (0-5) /hpf Ur Squamous Epith Cells (0-5) /hpf Urine Mucus (Occasional) /lpf Micro UA Comment Ur Microscopic Review Urine Culture Comments 06/09/18 06/09/18 06/09/18 Range/Units 16:19 20:46 21:04 WBC (4.0-11.0) th/mm3 RBC (4.00-5.30) mil/mm3 Hgb (11.6-15.3) gm/dL Hct (35.0-46.0) % MCV (80.0-100.0) fL MCH (27.0-34.0) pg MCHC (32.0-36.0) % RDW (11.6-17.2) % Plt Count (150-450) th/mm3 MPV (7.0-11.0) fL Neut % (Auto) (16.0-70.0) % Lymph % (Auto) (9.0-44.0) % [place] % (Auto) (0.0-8.0) % Eos % (Auto) (0.0-4.0) % Baso % (Auto) (0.0-2.0) % Neut # (Auto) (1.8-7.7) th/mm3 Lymph # (Auto) (1.0-4.8) th/mm3 [place] # (Auto) (0.0-0.9) th/mm3 Eos # (Auto) (0.0-0.4) th/mm3 Baso # (Auto) (0.0-0.2) th/mm3 WBC Differential Differential Comment PT (9.8-11.6) sec INR Ratio APTT (24.3-30.1) sec Sodium (136-145) meq/L Potassium (3.5-5.1) meq/L Chloride (98-107) meq/L Carbon Dioxide (21.0-32.0) meq/L Anion Gap (5-15) meq/L BUN (7-18) mg/dL Creatinine (0.50-1.00) mg/dL Estimated GFR (>89) mL/min POC Glucose 126 H 122 H (68-110) mg/dl Random Glucose (74-106) mg/dL Calcium (8.5-10.1) mg/dL Magnesium (1.5-2.5) mg/dL Total Bilirubin (0.2-1.0) mg/dL AST (15-37) U/L ALT (10-53) U/L Alkaline Phosphatase (45-117) U/L Total Creatine Kinase 23 L (26-192) U/L Troponin I Less than 0.02 L (0.02-0.05) ng/mL Total Protein (6.4-8.2) g/dL Albumin (3.4-5.0) g/dL Triglycerides (42-150) mg/dL Cholesterol (120-200) mg/dL LDL Cholesterol, Calc (0-99) mg/dL HDL Cholesterol (40.0-60.0) mg/dL Cholesterol/HDL Ratio Ratio Urine Color (Yellw/Straw) Urine Clarity (Clear) Urine pH (5.0-8.5) Ur Specific [place] (1.002-1.035) Urine Protein (Neg-Trace) mg/dL Urine Glucose (UA) (Negative) mg/dL Urine Ketones (Negative) mg/dL Urine Occult Blood (Negative) Urine Nitrate (Negative) Urine Bilirubin (Negative) Urine Urobilinogen (Less than 2) mg/dL Ur Leukocyte Esterase (Negative) Urine RBC (0-3) /hpf Urine WBC (0-5) /hpf Ur Squamous Epith Cells (0-5) /hpf Urine Mucus (Occasional) /lpf Micro UA Comment Ur Microscopic Review Urine Culture Comments 06/10/18 06/10/18 06/10/18 Range/Units 02:47 06:45 06:45 WBC 4.4 (4.0-11.0) th/mm3 RBC 4.29 (4.00-5.30) mil/mm3 Hgb 13.7 (11.6-15.3) gm/dL Hct 39.9 (35.0-46.0) % MCV 93.0 (80.0-100.0) fL MCH 31.9 (27.0-34.0) pg MCHC 34.3 (32.0-36.0) % RDW 13.8 (11.6-17.2) % Plt Count 142 L (150-450) th/mm3 MPV 8.3 (7.0-11.0) fL Neut % (Auto) 54.5 (16.0-70.0) % Lymph % (Auto) 29.3 (9.0-44.0) % [place] % (Auto) 13.4 H (0.0-8.0) % Eos % (Auto) 2.2 (0.0-4.0) % Baso % (Auto) 0.6 (0.0-2.0) % Neut # (Auto) 2.4 (1.8-7.7) th/mm3 Lymph # (Auto) 1.3 (1.0-4.8) th/mm3 [place] # (Auto) 0.6 (0.0-0.9) th/mm3 Eos # (Auto) 0.1 (0.0-0.4) th/mm3 Baso # (Auto) 0.0 (0.0-0.2) th/mm3 WBC Differential . Differential Comment Auto diff final PT (9.8-11.6) sec INR Ratio APTT (24.3-30.1) sec Sodium 141 (136-145) meq/L Potassium 4.2 (3.5-5.1) meq/L Chloride 106 (98-107) meq/L Carbon Dioxide 26.2 (21.0-32.0) meq/L Anion Gap 9 (5-15) meq/L BUN 12 (7-18) mg/dL Creatinine 0.59 (0.50-1.00) mg/dL Estimated GFR Greater than 89 (>89) mL/min POC Glucose (68-110) mg/dl Random Glucose 118 H (74-106) mg/dL Calcium 9.0 (8.5-10.1) mg/dL Magnesium (1.5-2.5) mg/dL Total Bilirubin (0.2-1.0) mg/dL AST (15-37) U/L ALT (10-53) U/L Alkaline Phosphatase (45-117) U/L Total Creatine Kinase (26-192) U/L Troponin I Less than 0.02 L (0.02-0.05) ng/mL Total Protein (6.4-8.2) g/dL Albumin (3.4-5.0) g/dL Triglycerides 145 (42-150) mg/dL Cholesterol 109 L (120-200) mg/dL LDL Cholesterol, Calc 37 (0-99) mg/dL HDL Cholesterol 43.3 (40.0-60.0) mg/dL Cholesterol/HDL Ratio 2.51 Ratio Urine Color (Yellw/Straw) Urine Clarity (Clear) Urine pH (5.0-8.5) Ur Specific [place] (1.002-1.035) Urine Protein (Neg-Trace) mg/dL Urine Glucose (UA) (Negative) mg/dL Urine Ketones (Negative) mg/dL Urine Occult Blood (Negative) Urine Nitrate (Negative) Urine Bilirubin (Negative) Urine Urobilinogen (Less than 2) mg/dL Ur Leukocyte Esterase (Negative) Urine RBC (0-3) /hpf Urine WBC (0-5) /hpf Ur Squamous Epith Cells (0-5) /hpf Urine Mucus (Occasional) /lpf Micro UA Comment Ur Microscopic Review Urine Culture Comments 06/10/18 06/10/18 06/10/18 Range/Units 07:55 11:55 17:10 WBC (4.0-11.0) th/mm3 RBC (4.00-5.30) mil/mm3 Hgb (11.6-15.3) gm/dL Hct (35.0-46.0) % MCV (80.0-100.0) fL MCH (27.0-34.0) pg MCHC (32.0-36.0) % RDW (11.6-17.2) % Plt Count (150-450) th/mm3 MPV (7.0-11.0) fL Neut % (Auto) (16.0-70.0) % Lymph % (Auto) (9.0-44.0) % [place] % (Auto) (0.0-8.0) % Eos % (Auto) (0.0-4.0) % Baso % (Auto) (0.0-2.0) % Neut # (Auto) (1.8-7.7) th/mm3 Lymph # (Auto) (1.0-4.8) th/mm3 [place] # (Auto) (0.0-0.9) th/mm3 Eos # (Auto) (0.0-0.4) th/mm3 Baso # (Auto) (0.0-0.2) th/mm3 WBC Differential Differential Comment PT (9.8-11.6) sec INR Ratio APTT (24.3-30.1) sec Sodium (136-145) meq/L Potassium (3.5-5.1) meq/L Chloride (98-107) meq/L Carbon Dioxide (21.0-32.0) meq/L Anion Gap (5-15) meq/L BUN (7-18) mg/dL Creatinine (0.50-1.00) mg/dL Estimated GFR (>89) mL/min POC Glucose 122 H 141 H 99 (68-110) mg/dl Random Glucose (74-106) mg/dL Calcium (8.5-10.1) mg/dL Magnesium (1.5-2.5) mg/dL Total Bilirubin (0.2-1.0) mg/dL AST (15-37) U/L ALT (10-53) U/L Alkaline Phosphatase (45-117) U/L Total Creatine Kinase (26-192) U/L Troponin I (0.02-0.05) ng/mL Total Protein (6.4-8.2) g/dL Albumin (3.4-5.0) g/dL Triglycerides (42-150) mg/dL Cholesterol (120-200) mg/dL LDL Cholesterol, Calc (0-99) mg/dL HDL Cholesterol (40.0-60.0) mg/dL Cholesterol/HDL Ratio Ratio Urine Color (Yellw/Straw) Urine Clarity (Clear) Urine pH (5.0-8.5) Ur Specific [place] (1.002-1.035) Urine Protein (Neg-Trace) mg/dL Urine Glucose (UA) (Negative) mg/dL Urine Ketones (Negative) mg/dL Urine Occult Blood (Negative) Urine Nitrate (Negative) Urine Bilirubin (Negative) Urine Urobilinogen (Less than 2) mg/dL Ur Leukocyte Esterase (Negative) Urine RBC (0-3) /hpf Urine WBC (0-5) /hpf Ur Squamous Epith Cells (0-5) /hpf Urine Mucus (Occasional) /lpf Micro UA Comment Ur Microscopic Review Urine Culture Comments Imaging Data Radiologist's impression: Cervical Spine CT 06/09/18 07:16 CONCLUSION: 1. No fracture or subluxation. Head CT 06/09/18 07:16 CONCLUSION: 1. No acute intracranial abnormality. 2. Trace of fluid in the left mastoid air cells which can be seen with mastoiditis in the right clinical setting. . Cervical Spine MRI 06/09/18 07:20 CONCLUSION: 1. Unremarkable cervical spine. Myocardial Perfusion Scan Nuc Med 06/10/18 08:00 CONCLUSION: 1. Unremarkable myocardial perfusion examination. Discharge Plan Discharge Disposition Patient Disposition: 01 Discharge Home Discharge Condition Condition: Stable Discharge Order Discharge Orders: Discharge Order (Routine); Ordered 06/10/18 Ordered By: Kristy Bell Discharge Details Anticipated Discharge Date: 06/10/18 Discharge Comment: Followup with Dr. Buckley in 1 week, call for that appt. Diagnosis: Atypical chest pain, DM2 (diabetes mellitus, type 2), CAD (coronary artery disease), Weakness Physicians Team ED Provider: Pedro Pitts Primary Care Provider: Ty Buckley Attending Provider: Roscoe Marti Discharge Interventions Interventions: ED Discharge Assessment Last Done: 06/09/18 11:55 Vital Signs Last Done: 06/09/18 11:00 Status ED Status: Left Department Discharge Information Discharge Date/Time: 06/09/18 11:55
[2018-06-09 08:10] LABS: Alkaline Phosphatase 100 U/L (45-117); Total Protein 6.9 g/dL (6.4-8.2)
[2018-06-09] MEDS ORDERED: Gadobutrol PF 10 MMOL/10 ML Vial (for RAD) IV.SIG ONE (08:30)
--- NOTE | 2018-06-09 08:58 | CT ---
EXAM DATE: 06/09/2018 7:27 AM EDT AGE/SEX: 72 years / Female INDICATIONS: Pain in head and neck. CLINICAL DATA: This is the patient's initial encounter. Patient reports that signs and symptoms have been present for 1 day and indicates a pain score of 10/10. MEDICAL/SURGICAL HISTORY: Arthritis. Diabetes mellitus type II. Carcinoma, breast. Spinal stenos is Hysterectomy. Cholecystectomy. Lumpectomy. RADIATION DOSE: 31.58 CTDI (mGy) COMPARISON: No prior exams available for comparison. TECHNIQUE: CT of the head without contrast. Using automated exposure control and adjustment of the mA and/or kV according to patient size, radiation dose was kept as low as reasonably achievable to ob tain optimal diagnostic quality images. DICOM format image data is available electronically for revi ew and comparison. FINDINGS: Cerebrum: The ventricles are normal for age. No evidence of midline shift, mass lesion, hemorrhage or acute infarction. No extraaxial fluid collections are seen. Posterior Fossa: The cerebellum and brainstem are intact. The 4th ventricle is midline. The cerebe llopontine angle is unremarkable. Extracranial: The visualized portion of the orbits is intact. Skull: The calvaria is intact. No evidence of skull fracture. Trace of fluid in left mastoid air ce lls. CONCLUSION: 1. No acute intracranial abnormality. 2. Trace of fluid in the left mastoid air cells which can be seen with mastoiditis in the right clin ical setting. . Electronically signed by: Steven Guillaume MD 06/09/2018 8:57 AM EDT
--- NOTE | 2018-06-09 09:03 | CT ---
EXAM DATE: 06/09/2018 7:27 AM EDT AGE/SEX: 72 years / Female INDICATIONS: Patient states head and neck pain. CLINICAL DATA: This is the patient's initial encounter. Patient reports that signs and symptoms have been present for 1 day and indicates a pain score of 10/10. MEDICAL/SURGICAL HISTORY: Arthritis. Diabetes mellitus type II. Carcinoma, breast. Spinal st enosis. Hysterectomy. Cholecystectomy. Lumpectomy. RADIATION DOSE: 18.68 CTDI (mGy) COMPARISON: No prior exams available for comparison. TECHNIQUE: Contiguous axial images were obtained using helical multirow detector technique. The vol umetric data was post-processed with multiplanar reconstruction in oblique axial, sagittal, and coron al planes. Using automated exposure control and adjustment of the mA and/or kV according to patient s ize, radiation dose was kept as low as reasonably achievable to obtain optimal diagnostic quality liz ges. DICOM format image data is available electronically for review and comparison. FINDINGS: Vertebrae: Normal vertebral body height. Alignment: Normal. No subluxation. C2-3: The bony spinal canal is normal in size. No evidence of disc bulge or herniation. The neural foramina are bilaterally patent. C3-4: The bony spinal canal is normal in size. No evidence of disc bulge or herniation. The neural foramina are bilaterally patent. C4-5: The bony spinal canal is normal in size. No evidence of disc bulge or herniation. The neural foramina are bilaterally patent. C5-6: The bony spinal canal is normal in size. No evidence of disc bulge or herniation. The neural foramina are bilaterally patent. C6-7: The bony spinal canal is normal in size. No evidence of disc bulge or herniation. The neural foramina are bilaterally patent. C7-T1: The bony spinal canal is normal in size. No evidence of disc bulge or herniation. The neura l foramina are bilaterally patent. CONCLUSION: 1. No fracture or subluxation. Electronically signed by: Steven Guillaume MD 06/09/2018 9:02 AM EDT
--- NOTE | 2018-06-09 09:59 | MR ---
EXAM DATE: 06/09/2018 7:20 AM EDT AGE/SEX: 72 years / Female INDICATIONS: Pain. Head and neck pain. Hx of breast ca. CLINICAL DATA: This is the patient's initial encounter. Patient reports that signs and symptoms have been present for 2 days and indicates a pain score of 7/10. MEDICAL/SURGICAL HISTORY: Carcinoma, breast. Diabetes mellitus type II. Hypertension. Cholecy stectomy. Hysterectomy. [place] [facility] [place]/O [place] 06/09/2018. . TECHNIQUE: Multiplanar, multisequence MRI examination of the cervical spine was performed without an d with 9 ml Gadavist (gadobutrol) contrast as a single exam dose. FINDINGS: Vertebrae: Normal vertebral body height. Homogeneous marrow signal. Diffuse disc desiccation. Alignment: Normal. Cord: Normal configuration and signal. Post Fossa: The cerebellar tonsils are normal in position. Post Contrast: No abnormal areas of enhancement are seen. C2-C3: The thecal sac has a normal configuration. There is no evidence of disc herniation or spinal canal stenosis. The neural foramina are patent bilaterally. C3-C4: The thecal sac has a normal configuration. There is no evidence of disc herniation or spinal canal stenosis. The neural foramina are patent bilaterally. C4-C5: The thecal sac has a normal configuration. There is no evidence of disc herniation or spinal canal stenosis. The neural foramina are patent bilaterally. C5-C6: The thecal sac has a normal configuration. There is no evidence of disc herniation or spinal canal stenosis. The neural foramina are patent bilaterally. C6-C7: The thecal sac has a normal configuration. There is no evidence of disc herniation or spinal canal stenosis. The neural foramina are patent bilaterally. C7-T1: No epidural impressions seen. CONCLUSION: 1. Unremarkable cervical spine. Electronically signed by: Steven uGillaume MD 06/09/2018 9:57 AM EDT
--- NOTE | 2018-06-09 10:54 | P.HPIM ---
History of Present Illness Primary Care Physician: Ty Buckley MD Chief Complaint: neck pain, weakness History of Present Illness: HPI Narrative: This is a 72-year-old female with a history of lumbar spinal stenosis, diabetes, hypertension, who presents today with complaints of head and neck pain. Patient also reports that she has had weakness of her upper and lower extremities since this morning. Patient states that she woke up with a headache and neck pain. She states that she felt pain down her arms. She also reports she felt as though her strength was not as strong as it normally is. She denies any bowel or bladder incontinence. Patient denies any previous history of cervical spine injury. She did have a fall several weeks ago which resulted in a large skin tear to her right lower extremity. She denies any recent falls. There is no reported fevers, chills. There is no reported other injuries at this time. PMH: 1) hypertension 2) hyperlipidemia 3) coronary artery disease -Last myocardial perfusion scan (03/07/16) showed no significant reversible perfusion defects, EF 70% 4) carotid artery stenosis - s/p left carotid endarterectomy performed by Dr. Mace () -Rotted ultrasound (02/13/17) moderate stenosis of the right ICA and mild disease of the left ICA 5) diabetes, type II -Hemoglobin A1c 5.2 (03/12/18) 6) peripheral vascular disease 7) diverticulosis 8) history of colon polyps -Flexible sigmoidoscopy (06/13/17) showed diverticulosis and a hyperplastic rectal polyp 9) osteoarthritis with chronic pain 10) urinary incontinence - s/p retropubic sling procedure December 2008 11) bilateral carpal tunnel syndrome, status post carpal tunnel release 12) degenerative disc disease lumbar 13) osteopenia 14) anxiety 15) vitamin D deficiency 16) GERD 17) gastroparesis 18) right breast cancer -Diagnosed June 2017 -Status post lumpectomy with pathology showing ductal carcinoma. Reexcision done 08/15/17 with intraoperative radiation therapy and sentinel node biopsy. 2 nodes were negative for cancer PSX: 1) breast biopsy 2) breast lumpectomy V) left carotid endarterectomy 4) left carotid endarterectomy 5) laparoscopic cholecystectomy 6) EGD 7) colonoscopy 8) cystoscopy 9) excision of tendon cyst 10) cataract surgery 11) nerve ablation at lumbar facet 12) vaginal sling operation for stress incontinence 13) total abdominal hysterectomy Family history: Noncontributory Social history: No alcohol use, no illicit street drugs, former smoker ALL: duloxetin, sulfa, codeine - Diagnosis (1) Atypical chest pain (2) DM2 (diabetes mellitus, type 2) (3) CAD (coronary artery disease) (4) Weakness Review of Systems Constitutional: Denies anorexia, Denies body ache(s), Denies chills, Denies fever(s), Denies night sweats, Denies poor appetite, Denies weight gain, Denies weight loss Eyes: Denies blind spots, Denies blurry vision, Denies change in vision, Denies double vision, Denies discharge, Denies loss of peripheral vision, Denies loss of vision, Denies other visual disturbances, Denies pain Ears, Nose, Mouth, and Throat: Denies bleeding gums, Denies difficulty swallowing, Denies dizziness, Denies headache(s), Denies hearing loss, Denies pain with swallowing, Denies poor balance, Denies ringing in the ears, Denies sore throat, Denies throat swelling, Denies tongue swelling Cardiovascular: Denies chest pain, Denies excessive sweating, Denies fainting, Denies fast heart rate, Denies generalized swelling, Denies irregular heart rhythm, Denies leg swelling, Denies lightheadedness, Denies slow heart rate Respiratory: Denies cough, Denies shortness of breath, Denies snoring, Denies wheezing Gastrointestinal: Denies abdominal pain, Denies belching, Denies black, tarry stools, Denies bright, red blood in stools, Denies change in bowel habits, Denies change in stools, Denies coffee ground vomit, Denies constipation, Denies cramping, Denies difficulty swallowing, Denies heartburn, Denies incontinent of stools, Denies loose stools, Denies nausea, Denies pain with swallowing, Denies vomiting, Denies vomiting blood Genitourinary: Denies abnormal vaginal bleeding, Denies blood in urine, Denies difficulty starting urination, Denies difficulty urinating, Denies frequent nighttime urination, Denies painful urination, Denies pelvic pain, Denies side pain, Denies urinary incontinence, Denies urinary hesitancy, Denies urinary urgency Musculoskeletal: Denies abnormal walking, Denies back pain, Denies body aches, Denies decreased muscle mass, Denies joint pain, Denies joint swelling, Denies muscle weakness, Denies neck pain, Denies numbness, Denies stiffness, Denies tingling Skin/Breast: Denies bleeding lesions, Denies change in skin color, Denies changing lesions, Denies itching, Denies lesions, Denies new lesions, Denies non -healing lesions, Denies redness, Denies sensitivity to light, Denies rash, Denies skin pain, Denies skin swelling, Denies skin ulcer, Denies sores, Denies unusual bruising, Denies wounds, Denies yellowing of the skin Neurologic: Denies abnormal hearing, Denies abnormal movements, Denies abnormal speech, Denies abnormal walking, Denies behavioral changes, Denies burning sensations, Denies confusion, Denies dizziness, Denies fainting, Denies frequent falls, Denies headache(s), Denies lack of coordination, Denies localized weakness, Denies loss of vision, Denies memory loss, Denies numbness, Denies other visual disturbances, Denies radiating pain, Denies restless legs, Denies convulsions, Denies seizure-like activity, Denies sensory deficit, Denies tingling/numbness/burning sensations, Denies tremor(s), Denies unsteadiness, Denies weakness Psychiatric: Denies abnormal sleep pattern, Denies anxiety, Denies behavioral changes, Denies change in appetite, Denies confusion, Denies depression, Denies difficulty concentrating, Denies hearing things others do not hear, Denies irritability, Denies lack of enjoyment, Denies memory loss, Denies mood swings, Denies panic attacks, Denies paranoia, Denies seeing things others do not see, Denies thoughts of hurting/killing others, Denies thoughts of hurting/killing yourself Endocrine: Denies cold intolerance, Denies excessive sweating, Denies fatigue, Denies flushing, Denies heat intolerance, Denies increased hunger, Denies increased thirst, Denies increased urination, Denies rapid, pounding, or irregular heartbeat Hematologic/Lymphatic: Denies easy bleeding, Denies easy bruising, Denies enlarged lymph nodes Allergic/Immunologic: Denies hives, Denies lip swelling, Denies throat swelling , Denies wheezing PMFSH - History History Provided By: Patient - Medical History Medical History: Medical History (Last Updated 06/09/18 @ 06:06 by Leigha Rizzo) Arthritis Breast cancer Bursitis Carpal tunnel syndrome Diabetes H/O: hysterectomy Spinal stenosis - Surgical History Surgical History: Surgical History (Last Reviewed 06/09/18 @ 08:33 by Nina Gupta) H/O lumpectomy History of cholecystectomy - Tobacco History Second Hand Smoke Exposure: No Tobacco Use In Past 30 Days: Yes Smoking Status: Current some day smoker Tobacco Type: E-Cigarettes - Alcohol History How Often Do You Have a Drink Containing Alcohol: Never - Substance Use History Substance History: No History of Abuse - Travel History Recent Travel in the [place] Within the Last 8 Weeks: No Recent Travel Out of the Country Within the Last 8 Weeks: No - Immunization History Tetanus Immunization: <5 Years Tetanus Immunization Year if Known: 2017 Medications and Allergies Active Medications: Active Medications Acetaminophen (Tylenol) 500 mg PO Q4H PRN PRN Reason: HEADACHE Aspirin (Aspirin) 325 mg PO DAILY [place] Nitroglycerin (Nitrostat Sl) 0.4 mg SL Q5M PRN PRN Reason: ANGINA Sodium Chloride (Ns Flush) 2 ml IV.FLUSH PRN PRN PRN Reason: FLUSH AFTER USING IV ACCESS Sodium Chloride (Ns Flush) 2 ml IV.FLUSH BID [place] Sodium Chloride (Ns Flush) 2 ml IV.FLUSH PRN PRN PRN Reason: FLUSH AFTER USING IV ACCESS Allergies Allergy/AdvReac Type Severity Reaction Status Date / Time duloxetine Allergy Severe Rash Verified 06/10/18 10:25 Sulfa (Sulfonamide Allergy Severe SWELLING,HIVES, Verified 06/10/18 10:25 Antibiotics) COULDN'T BREATHE codeine AdvReac Severe NAUSEA/VOMI Verified 06/10/18 10:25 TING EXCEDRIN Allergy Severe unknown Uncoded 06/09/18 06:02 Home Medications Medication Instructions Recorded Confirmed Type Bifidobacterium infantis [Align] 06/09/18 History amlodipine 5 mg PO BID 06/09/18 06/09/18 History aspirin 81 mg PO DAILY 06/09/18 06/09/18 History carvedilol 6.25 mg PO BID 06/09/18 06/09/18 History isosorbide mononitrate 60 mg PO BID 06/09/18 06/09/18 History lovastatin 40 mg PO HS 06/09/18 06/09/18 History metformin 500 mg PO HS 06/09/18 06/09/18 History Exam Vital signs: 06/09/18 06:02 06/09/18 07:16 06/09/18 07:57 Temperature 99.6 F Pulse Rate 71 69 69 Respiratory Rate 16 18 Blood Pressure 141/63 H 137/64 Pulse Oximetry 96 95 Narrative: GENERAL: This is a well-nourished, well-developed patient, in no apparent distress. CARDIOVASCULAR: Regular rate and rhythm without murmurs, gallops, or rubs. RESPIRATORY: Clear to auscultation. Breath sounds equal bilaterally. No wheezes , rales, or rhonchi. GASTROINTESTINAL: Abdomen soft, non-tender, nondistended. Normal active bowel sounds MUSCULOSKELETAL: Extremities without clubbing, cyanosis, or edema. NEURO: Alert & Oriented x4 to person, place, time, situation. Moves all ext x4 Results - Labs CBC & Chem 7: 06/10/18 06:45 06/10/18 06:45 Labs: Cardiac Enzymes 06/09/18 Range/Units 07:30 Troponin I Less than 0.02 L (0.02-0.05) ng/mL Liver Function 06/09/18 Range/Units 07:30 Total Bilirubin 0.5 (0.2-1.0) mg/dL AST 18 (15-37) U/L ALT 18 (10-53) U/L Alkaline Phosphatase 100 (45-117) U/L Albumin 3.4 (3.4-5.0) g/dL Urine 06/09/18 Range/Units 07:30 Urine Color Yellow (Yellw/Straw) Urine Clarity Clear (Clear) Urine pH 5.0 (5.0-8.5) Ur Specific [place] 1.010 (1.002-1.035) Urine Protein Negative (Neg-Trace) mg/dL Urine Glucose (UA) Negative (Negative) mg/dL - Imaging Cervical Spine CT 06/09/18 07:16 1. No fracture or subluxation. Head CT 06/09/18 07:16 1. No acute intracranial abnormality. 2. Trace of fluid in the left mastoid air cells which can be seen with mastoiditis in the right clinical setting. Cervical Spine MRI 06/09/18 07:20 1. Unremarkable cervical spine. Caprini VTE Risk Assessment Caprini VTE Risk Assessment: Moderate/High Risk (score >= 2) Caprini Risk Assessment Model: Point Value = 1 Point Value = 2 Point Value = 3 Point Value = 5 Age 41-60 Minor surgery BMI > 25 kg/m2 Swollen legs Varicose veins or History of unexplained or recurrent spontaneous Oral contraceptives or hormone replacement Sepsis (< 1 month) Serious lung disease, including pneumonia (< 1 month) Abnormal pulmonary function Acute myocardial infarction Congestive heart failure (< 1 month) History of inflammatory bowel disease Medical patient at bed rest Age 61-74 Arthroscopic surgery Major open surgery (> 45 min) Laparoscopic surgery (> 45 min) Malignancy Confined to bed (> 72 hours) Immobilizing plaster cast Central venous access Age >= 75 History of VTE Family history of VTE Factor V Leiden Prothrombin [id number] Lupus anticoagulant Anticardiolipin antibodies Elevated serum homocysteine Heparin-induced thrombocytopenia Other congenital or acquired thrombophilia Stroke (< 1 month) Elective arthroplasty Hip, pelvis, or leg fracture Acute spinal cord injury (< 1 month) Prophylaxis Regimen: Total Risk Factor Score Risk Level Prophylaxis Regimen 0-1 Low Early ambulation 2 Moderate Order ONE of the following: *Sequential Compression Device (SCD) *Heparin 5000 units SQ BID 3-4 Higher Order ONE of the following medications: *Heparin 5000 units SQ TID *Enoxaparin/Lovenox 40 mg SQ daily (WT < 150 kg, CrCl > 30 mL/min) *Enoxaparin/Lovenox 30 mg SQ daily (WT < 150 kg, CrCl > 10-29 mL/min) *Enoxaparin/Lovenox 30 mg SQ BID (WT < 150 kg, CrCl > 30 mL/min) AND/OR *Sequential Compression Device (SCD) 5 or more Highest Order ONE of the following medications: *Heparin 5000 units SQ TID (Preferred with Epidurals) *Enoxaparin/Lovenox 40 mg SQ daily (WT < 150 kg, CrCl > 30 mL/min) *Enoxaparin/Lovenox 30 mg SQ daily (WT < 150 kg, CrCl > 10-29 mL/min) *Enoxaparin/Lovenox 30 mg SQ BID (WT < 150 kg, CrCl > 30 mL/min) AND *Sequential Compression Device (SCD) Assessment and Plan - Assessment (1) Atypical chest pain Code(s): R07.89 - Other chest pain Status: Acute Plan: -Patient has history of coronary artery disease -History of myocardial bridge Moderate PDA by cath 2010 - longstanding HTN, DM2, and hyperlipidemia - Pt is a former smoker - lexiscan 09/17 was negative for ischemia - Pt presented to the ER 06/09/18 with c/o chest pain and weakness -Obtain serial cardiac enzymes -Obtain serial EKGs -Obtain fasting lipid panel in a.m. -Continue aspirin, Coreg, isosorbide, lovastatin 2) DM2 - continue metformin. 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
[2018-06-09] MEDS: Aspirin 325 MG Tablet PO SCH (11:27)
[2018-06-09 11:55] LABS: Activated Partial Thrombo Time 23.8 sec (24.3-30.1); Prothrombin Time 10.5 sec (9.8-11.6)
[2018-06-09] MEDS ORDERED: Dextrose 50% in Water 50 ML Vial IV.PUSH PRN (15:04)
[2018-06-09] MEDS: Insulin NovoLOG Aspart Correctional Sugar Inj SQ SCH ×2 (16:23→21:05)
--- NOTE | 2018-06-09 16:51 | ECHRPT ---
Indication: chest pain CONCLUSIONS The left ventricular systolic function is normal with an estimated ejection fraction in the range of 60-65%. No regional wall motion abnormalities Mild mitral annular calcification. Trace mitral valve regurgitation. There is mild tricuspid valve regurgitation. The estimated pulmonary arterial pressure is 32 mmHg. BP: / HR: Rhythm: MEASUREMENTS (Male / Female) Normal Values Technical Quality: 2D ECHO LV Diastolic Diameter PLAX 4.4 cm 4.2 - 5.9 / 3.9 - 5.3 cm LV Systolic Diameter PLAX 2.8 cm IVS Diastolic Thickness 0.9 cm 0.6 - 1.0 / 0.6 - 0.9 cm LVPW Diastolic Thickness 0.8 cm 0.6 - 1.0 / 0.6 - 0.9 cm LV Relative Wall Thickness 0.4 RV Internal Dim ED PLAX 3.2 cm LVOT Diameter 1.7 cm Aortic Root Diameter 2.5 cm LA Systolic Diameter LX 3.4 cm 3.0 - 4.0 / 2.7 - 3.8 cm LV Ejection Fraction MOD 4C 60.6 % LV Ejection Fraction 4C AL 61.2 % M-MODE Aortic Root Diameter MM 2.7 cm LA Systolic Diameter MM 4.2 cm LA Ao Ratio MM 1.6 AV Cusp Separation MM 2.0 cm DOPPLER AV Peak Velocity 164.0 cm/s AV Peak Gradient 10.8 mmHg LVOT Peak Velocity 148.0 cm/s LVOT Peak Gradient 8.8 mmHg AV Area Cont Eq pk 2.0 cm Mitral E Point Velocity 49.9 cm/s Mitral A Point Velocity 90.8 cm/s Mitral E to A Ratio 0.5 LV E' Lateral Velocity 7.1 cm/s Mitral E to LV E' Lateral Ratio 7.0 LV E' Septal Velocity 4.6 cm/s Mitral E to LV E' Septal Ratio 10.9 TR Peak Velocity 234.0 cm/s TR Peak Gradient 21.9 mmHg Right Atrial Pressure 10.0 mmHg Pulmonary Artery Systolic Pressu 31.9 mmHg Right Ventricular Systolic Press 31.9 mmHg PV Peak Velocity 113.0 cm/s PV Peak Gradient 5.1 mmHg FINDINGS LEFT VENTRICLE Normal left ventricular size. Wall thickness is normal. The left ventricular systolic function is normal with an estimated ejection fraction in the range of 60-65%. RIGHT VENTRICLE Normal right ventricular size and systolic function. LEFT ATRIUM The left atrial size is normal. RIGHT ATRIUM The right atrial size is normal. ATRIAL SEPTUM Normal atrial septal thickness without atrial level shunting by limited color doppler interrogation. AORTA The aortic root and proximal ascending aorta are normal in size on limited imaging. MITRAL VALVE Mild mitral annular calcification. Trace mitral valve regurgitation. AORTIC VALVE Trileaflet aortic valve. No aortic valve stenosis or regurgitation. TRICUSPID VALVE There is mild tricuspid valve regurgitation. The estimated pulmonary arterial pressure is 32 mmHg. PULMONARY VALVE No pulmonary valve regurgitation or stenosis. VESSELS The inferior vena cava is normal in size. PERICARDIUM No pericardial effusion. Duc Marinelli MD (Electronically Signed) Final Date:09 June 2018 16:51
--- NOTE | 2018-06-09 16:54 | ECG ---
Date Performed: 06/09/2018 Time Performed: 07:33:07 PTAGE: 72 years EKG: Sinus rhythm NORMAL ECG Since PREVIOUS TRACING , no significant change noted PREVIOUS TRACIN09/01/2015 11.43 DOCTOR: Kala Tang Interpretating Date/Time 06/09/2018 16:53:25
[2018-06-09] MEDS: Carvedilol 6.25 MG Tablet PO SCH (20:59)
[2018-06-09] MEDS: Isosorbide Mononitrate 60 MG ER 24HR Tablet (Imdur) PO SCH (20:59)
[2018-06-09] MEDS: amLODIPine 5 MG Tablet PO SCH (20:59)
[2018-06-09 22:11] LABS: Creatine Kinase 23 U/L (26-192)
[2018-06-10] MEDS: Acetaminophen 500 MG Tablet PO PRN ×2 (03:20→08:18)
[2018-06-10 07:24] LABS: Baso % (Auto) 0.6 % (0.0-2.0); Eos # (Auto) 0.1 th/mm3 (0.0-0.4); Eos % (Auto) 2.2 % (0.0-4.0); Hematocrit 39.9 % (35.0-46.0); Hemoglobin 13.7 gm/dL (11.6-15.3); Lymph # (Auto) 1.3 th/mm3 (1.0-4.8); Lymph % (Auto) 29.3 % (9.0-44.0); Mean Corpuscular HGB Conc 34.3 % (32.0-36.0); Mean Corpuscular Hemoglobin 31.9 pg (27.0-34.0); Mean Platelet Volume 8.3 fL (7.0-11.0); Mono # (Auto) 0.6 th/mm3 (0.0-0.9); Mono % (Auto) 13.4 % (0.0-8.0); Neut # (Auto) 2.4 th/mm3 (1.8-7.7); Neut % (Auto) 54.5 % (16.0-70.0); Platelet Count 142 th/mm3 (150-450); Red Blood Count 4.29 mil/mm3 (4.00-5.30); Red Cell Distribution Width 13.8 % (11.6-17.2); White Blood Count 4.4 th/mm3 (4.0-11.0)
[2018-06-10 07:43] VITALS: RESP 20
[2018-06-10] MEDS: Insulin NovoLOG Aspart Correctional Sugar Inj SQ SCH ×3 (08:04→17:32)
[2018-06-10 08:09] LABS: Anion Gap 9 meq/L (5-15); Blood Urea Nitrogen 12 mg/dL (7-18); Carbon Dioxide 26.2 meq/L (21.0-32.0); Chloride 106 meq/L (98-107); Cholesterol 109 mg/dL (120-200); Glomerular Filtration Rate Greater Than 89 mL/min (>89); Glucose,Random 118 mg/dL (74-106); Potassium 4.2 meq/L (3.5-5.1); Sodium 141 meq/L (136-145)
[2018-06-10 08:13] LABS: Chol/HDL Ratio 2.51 Ratio; HDL Cholesterol 43.3 mg/dL (40.0-60.0); LDL Cholesterol,Calculated 37 mg/dL (0-99); Triglycerides 145 mg/dL (42-150)
[2018-06-10] MEDS: amLODIPine 5 MG Tablet PO SCH (08:18)
[2018-06-10] MEDS: Aspirin 325 MG Tablet PO SCH (08:18)
[2018-06-10] MEDS: Carvedilol 6.25 MG Tablet PO SCH (08:18)
[2018-06-10] MEDS: Isosorbide Mononitrate 60 MG ER 24HR Tablet (Imdur) PO SCH (08:18)
--- NOTE | 2018-06-10 09:08 | P.PNIM ---
Subjective Interval history: Pt off the floor for Jeremias this morning Will re-evaluate when she returns to the floor Physical Exam Vital signs: Vital Signs 06/09/18 11:00 06/09/18 11:34 06/09/18 12:51 Temperature 97.7 F 98.8 F Pulse Rate 64 62 Respiratory Rate 19 20 Blood Pressure 162/72 H 145/69 H Pulse Oximetry 98 96 06/09/18 16:19 06/09/18 20:00 06/10/18 00:00 Temperature 98.5 F 98.3 F 98.3 F Pulse Rate 65 59 L 62 Respiratory Rate 20 16 16 Blood Pressure 142/60 H 140/65 126/64 Pulse Oximetry 97 96 94 L 06/10/18 04:00 06/10/18 07:41 Temperature 98.5 F 98.4 F Pulse Rate 62 62 Respiratory Rate 16 20 Blood Pressure 138/65 117/60 Pulse Oximetry 92 L 98 Intake & Output 06/09/18 06/10/18 06/10/18 18:59 06:59 18:59 Intake Total 200 / 200 Balance 200 / 200 Weight 84.36 kg 84 kg Intake: Oral 200 / 200 Other: # Voids 1 2 Date of Last Bowel Movement 06/09/18 Weight On Admission 84.36 kg Narrative: General: NAD, AAOx3 Chest: CTA Cardiac: Regular Abd: +BS, soft ND/NT Ext: No edema Results - Labs CBC & Chem 7: 06/10/18 06:45 06/10/18 06:45 Laboratory Results - last 24 hr 06/09/18 06/09/18 06/09/18 07:30 11:15 11:15 WBC RBC Hgb Hct MCV MCH MCHC RDW Plt Count MPV Neut % (Auto) Lymph % (Auto) [place] % (Auto) Eos % (Auto) Baso % (Auto) Neut # (Auto) Lymph # (Auto) [place] # (Auto) Eos # (Auto) Baso # (Auto) WBC Differential Differential Comment PT 10.5 INR 1.0 APTT 23.8 L Sodium Potassium Chloride Carbon Dioxide Anion Gap BUN Creatinine Estimated GFR POC Glucose Random Glucose Calcium Magnesium 2.0 Total Creatine Kinase 33 26 Troponin I Triglycerides Cholesterol LDL Cholesterol, Calc HDL Cholesterol Cholesterol/HDL Ratio 06/09/18 06/09/18 06/09/18 16:19 20:46 21:04 WBC RBC Hgb Hct MCV MCH MCHC RDW Plt Count MPV Neut % (Auto) Lymph % (Auto) [place] % (Auto) Eos % (Auto) Baso % (Auto) Neut # (Auto) Lymph # (Auto) [place] # (Auto) Eos # (Auto) Baso # (Auto) WBC Differential Differential Comment PT INR APTT Sodium Potassium Chloride Carbon Dioxide Anion Gap BUN Creatinine Estimated GFR POC Glucose 126 H 122 H Random Glucose Calcium Magnesium Total Creatine Kinase 23 L Troponin I Less than 0.02 L Triglycerides Cholesterol LDL Cholesterol, Calc HDL Cholesterol Cholesterol/HDL Ratio 06/10/18 06/10/18 06/10/18 02:47 06:45 06:45 WBC 4.4 RBC 4.29 Hgb 13.7 Hct 39.9 MCV 93.0 MCH 31.9 MCHC 34.3 RDW 13.8 Plt Count 142 L MPV 8.3 Neut % (Auto) 54.5 Lymph % (Auto) 29.3 [place] % (Auto) 13.4 H Eos % (Auto) 2.2 Baso % (Auto) 0.6 Neut # (Auto) 2.4 Lymph # (Auto) 1.3 [place] # (Auto) 0.6 Eos # (Auto) 0.1 Baso # (Auto) 0.0 WBC Differential . Differential Comment Auto diff final PT INR APTT Sodium 141 Potassium 4.2 Chloride 106 Carbon Dioxide 26.2 Anion Gap 9 BUN 12 Creatinine 0.59 Estimated GFR Greater than 89 POC Glucose Random Glucose 118 H Calcium 9.0 Magnesium Total Creatine Kinase Troponin I Less than 0.02 L Triglycerides 145 Cholesterol 109 L LDL Cholesterol, Calc 37 HDL Cholesterol 43.3 Cholesterol/HDL Ratio 2.51 06/10/18 07:55 WBC RBC Hgb Hct MCV MCH MCHC RDW Plt Count MPV Neut % (Auto) Lymph % (Auto) [place] % (Auto) Eos % (Auto) Baso % (Auto) Neut # (Auto) Lymph # (Auto) [place] # (Auto) Eos # (Auto) Baso # (Auto) WBC Differential Differential Comment PT INR APTT Sodium Potassium Chloride Carbon Dioxide Anion Gap BUN Creatinine Estimated GFR POC Glucose 122 H Random Glucose Calcium Magnesium Total Creatine Kinase Troponin I Triglycerides Cholesterol LDL Cholesterol, Calc HDL Cholesterol Cholesterol/HDL Ratio - Imaging Impressions Cervical Spine CT 06/09/18 07:16 CONCLUSION: 1. No fracture or subluxation. Cervical Spine MRI 06/09/18 07:20 CONCLUSION: 1. Unremarkable cervical spine. Assessment and Plan - Assessment (1) Atypical chest pain Code(s): R07.89 - Other chest pain Status: Acute Plan: Atypical Chest Pain - Patient has history of coronary artery disease - History of myocardial bridge Moderate PDA by cath 2010 - longstanding HTN, DM2, and hyperlipidemia - Pt is a former smoker - Pt had Lexiscan 09/17 which was negative for ischemia - Pt presented to the ER 06/09/18 with c/o chest pain and weakness - Serial cardiac enzymes/EKGs are negative - Fasting lipid panel reviewed - Pt having Lexiscan this morning, await results - Continue aspirin, Coreg, isosorbide, lovastatin DM2 - continue metformin. - SSI Weakness - Physical therapy to assess ADDENDUM: - Pts Lexiscan was negative. - Pt did well with PT and no recommendations to continue PT at discharge. - She is medically stable for discharge. She will continue her home meds - Pt is to followup with her PCP, Dr. Ty Buckley in 1 week, call for that appt. (2) DM2 (diabetes mellitus, type 2) Code(s): E11.9 - Type 2 diabetes mellitus without complications Status: Acute (3) CAD (coronary artery disease) Code(s): I25.10 - Atherosclerotic heart disease of [place] coronary artery without angina pectoris Status: Acute (4) Weakness Code(s): R53.1 - Weakness Status: Acute - Attending Attestation Patient examined. Assessment and plan formulated with Kristy Bell PA-C. I agree with the above. 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
[2018-06-10] MEDS ORDERED: Regadenoson Inj 0.4 MG/5 ML Syringe IV.PUSH ONE (10:04)
--- NOTE | 2018-06-10 11:26 | NM ---
EXAM DATE: 06/10/2018 8:08 AM EDT AGE/SEX: 72 years / Female INDICATIONS:Angina. . Chest pain for one day. CLINICAL DATA: This is the patient's initial encounter. Patient reports that signs and symptoms have been present for 1 day and indicates a pain score of 3/10. MEDICAL/SURGICAL HISTORY: Carcinoma, breast. Diabetes mellitus type II. Hysterectomy. Mastect justo, bilateral. COMPARISON: No prior exams available for comparison. DOSE: 8.5 mCi Tc 99m Myoview at rest 26.4 mCi [id number] at stress 0.4 mg Lexiscan STRESS SYMPTOMS: Stomach cramps. EJECTION FRACTION: 67 % TECHNIQUE: The patient underwent pharmacologic stress with infusion of prescribed dose. Continuous ECG tracing was monitored during stress. Gated SPECT imaging was performed after stress and conventi onal SPECT imaging was performed at rest. The examination was performed on a SPECT/CT scanner, both attenuation and non-corrected datasets were reviewed. FINDINGS: Distribution: The maximum perfused segment at stress is in the inferior wall. Perfusion Study: The pattern of perfusion at stress is within normal limits. Gated Study: There are intact wall motion and wall thickening without hypokinetic or dyskinetic segm ents. The ejection fraction is calculated at 67%. RISK CATEGORY: Low (<1% Annual Motality Rate) CONCLUSION: 1. Unremarkable myocardial perfusion examination. Electronically signed by: Roby Gamble MD 06/10/2018 11:25 AM EDT
[2018-06-10 11:52] VITALS: O2SAT 97
[2018-06-10 16:23] VITALS: BP 153/67; PULSE 63; TEMP 97.3
== END 2018-06-10 18:46 | disposition home or self-care (01) ==
LOC: NEDA 05:56 → NEPC 05:56 → NEPHCDU 11:47
PROVIDERS: ADMIT Hospitalist; ATTEND Hospitalist